=== PATIENT | female | born 1960 | race Caucasian/White ===

== ENCOUNTER 2018-10-23 22:45 | Emergency (ER) | payer MEDICARE, BC ==
--- NOTE | 2018-10-23 23:02 | EDM.PDOC ---
ED HPI GENERAL MEDICAL PROBLEM - General Chief Complaint: Lower Extremity Injury/Pain Stated Complaint: Proximal femur pain Time Seen by Provider: 10/23/18 22:57 Source of Information: Reports: Patient, Half-Way Records History Limitations: Reports: No Limitations - History of Present Illness INITIAL COMMENTS - FREE TEXT/NARRATIVE: Sustained femoral fracture involving rodding open reduction internal fixation 5- 6 weeks ago. She returned for therapy and strengthening and is currently residing in the nursing facility and under undergoing therapy. She is been nonweightbearing and was about to begin pivoting training. She denies any falls or bumping, has been undergoing therapy but again non- weightbearing fashion. Has been using Tylenol only for discomfort. Onset: Today Onset Date: 10/23/18 Onset Time: 20:00 Duration: Hour(s): (Femoral fracture with rodding 5-6 weeks ago Cedric), Getting Worse Location: Reports: Upper Extremity, Right Right Hip Pain Score (Numeric/FACES): 8 - Related Data Allergies Allergy/AdvReac Type Severity Reaction Status Date / Time adhesive tape Allergy Other Verified 10/23/18 23:22 Sulfa (Sulfonamide Allergy Other Verified 10/23/18 23:22 Antibiotics) Home Meds: Home Meds Calcitriol [Rocaltrol] 0.25 mcg PO DAILY 10/23/18 [History] Calcium Carbonate 1,200 mg PO BIDMEALS 10/23/18 [History] Esomeprazole Magnesium [Nexium 24Hr] 40 mg PO DAILY 10/23/18 [History] Insulin Aspart [NovoLOG] 0 unit SQ WITHMEALSANDBED 10/23/18 [History] Insulin Glarg,Human.Rec.Analog [Lantus Solostar] 30 unit SUBCUT 2100 10/23/18 [ History] Levothyroxine [Synthroid] 50 mcg PO 0700 10/23/18 [History] Loperamide HCl [Imodium A-D] 2 mg PO ASDIRECTED PRN 10/23/18 [History] Losartan [Cozaar] 25 mg PO DAILY 10/23/18 [History] Midodrine 5 mg PO TID 10/23/18 [History] Morphine [Morphine 10 MG/5 ML] 2 mg PO Q3HR PRN #1 cup 10/23/18 [Rx] Octreotide Acetate 100 mcg IM 0000,0800,1600 10/23/18 [History] L.acidoph,Paracasei, B.lactis [Probiotic] 1 each PO DAILY 10/24/18 [History] Propranolol [Inderal] 10 mg PO BID 10/24/18 [History] Rifaximin [Xifaxan] 550 mg PO BID 10/24/18 [History] Sertraline [Zoloft] 75 mg PO DAILY 10/24/18 [History] Spironolactone [Aldactone] 50 mg PO BID 10/24/18 [History] Ursodiol 300 mg PO TID 10/24/18 [History] Past Medical History HEENT History: Reports: Impaired Vision (Glasses) Cardiovascular History: Reports: Hypertension Respiratory History: Reports: None Gastrointestinal History: Reports: Hepatitis (Otitis C recently undergoing paracentesis), Irritable Bowel Syndrome, Other (See Below) (Esophageal varices without bleeding) Genitourinary History: Reports: Chronic Renal Insuffiency, Other (See Below) ( Suprapubic catheter) Musculoskeletal History: Reports: Back Pain, Chronic, Fracture, Osteoporosis, Other (See Below) (Chronic abnormalities of gait and mobility) Neurological History: Reports: Other (See Below) (Chronic inflammatory demyelinating polyneuritis) Psychiatric History: Reports: Depression Endocrine/Metabolic History: Reports: Diabetes, Type II, Hypothyroidism, IDDM, Osteoporosis (Pathological vertebral fractures) Immunologic History: Reports: None - Infectious Disease History Infectious Disease History: Reports: Hepatitis C (Underwent paracentesis 18 October 2018) - Past Surgical History HEENT Surgical History: Reports: None Cardiovascular Surgical History: Reports: None Respiratory Surgical History: Reports: None GI Surgical History: Reports: Colonoscopy Female Surgical History: Reports: Suprapubic Catheter Placement Neurological Surgical History: Reports: Lumbar Spine Musculoskeletal Surgical History: Reports: Other (See Below) (Femoral repair) ED ROS GENERAL - Review of Systems Review Of Systems: ROS reveals no pertinent complaints other than HPI. ED EXAM, GENERAL - Physical Exam Exam: See Below Exam Limited By: No Limitations General Appearance: Alert, WD/WN, Mild Distress Ears: Normal External Exam, Normal Canal, Hearing Grossly Normal Nose: Normal Inspection, Normal Mucosa, No Blood Throat/Mouth: Normal Inspection, Normal Lips, Normal Teeth, Normal Gums, Normal Oropharynx, Normal Voice, No Airway Compromise Head: Atraumatic, Normocephalic Neck: Normal Inspection, Supple, Non-Tender, Full Range of Motion Respiratory/Chest: No Respiratory Distress, Lungs Clear, Normal Breath Sounds, No Accessory Muscle Use, Chest Non-Tender Cardiovascular: Normal Peripheral Pulses, Regular Rate, Rhythm, No Edema, No Murmur GI/Abdominal: Normal Bowel Sounds, Non-Tender, Distended (Mild chronic in appearance enlarged right upper quadrant), Other (Suprapubic catheter in place) (Female) Exam: Deferred Rectal (Female) Exam: Deferred Extremities: No Pedal Edema, Normal Capillary Refill, Other (Bruises to the right upper extremity). No: Normal Inspection, Normal Range of Motion, Non- Tender, Spike's Sign Neurological: Alert, Oriented, CN II-XII Intact, Normal Cognition Skin Exam: Warm, Dry, Ecchymosis (Upper extremities), Wound/Incision (Right lateral femoral healing) Lymphatic: No Adenopathy Course - Vital Signs Last Recorded V/S: Last Vital Signs Temp 36.7 C 10/23/18 23:15 Pulse 72 10/23/18 23:15 Resp 20 10/23/18 23:15 BP 136/51 L 10/23/18 23:15 Pulse Ox 97 10/23/18 23:15 - Orders/Labs/Meds Orders: Active Orders 24 hr Category Date Time Status Hip Min 2V or 3V Rt [CR] Stat Exams 10/23/18 22:58 Ordered Morphine [Morphine 10 MG/5 ML] Med 10/24/18 00:01 Ordered 2 mg PO Q4H PRN Medication Orders Morphine Sulfate (Morphine 10 Mg/5 Ml) 2 mg PO Q4H PRN PRN Reason: pain Stop: 10/24/18 16:00 Meds: Medications Generic Name Dose Route Start Last Admin Trade Name Freq PRN Reason Stop Dose Admin Morphine Sulfate 2 mg 10/24/18 00:01 Morphine 10 Mg/5 Ml PO 10/24/18 16:00 Q4H PRN pain Discontinued Medications Generic Name Dose Route Start Last Admin Trade Name Freq PRN Reason Stop Dose Admin Heparin Sodium (Porcine) Confirm 10/23/18 23:32 Heparin Lock Flush 100 Units/Ml Administered 10/23/18 23:33 Dose 500 units .ROUTE .STK-MED ONE Morphine Sulfate 1 mg 10/23/18 23:25 Morphine IVPUSH 10/23/18 23:26 ONETIME ONE - Radiology Interpretation Free Text/Narrative:: Radiology report returns with findings of changes from recent open reduction internal fixation of the right intertrochanteric fracture. There is a mild impaction at the level of the fracture line Mild callus formation at the level of the fracture line Changes and degenerative joint disease. With his findings having no comparison available for me to review I recommend bedrest until official final reading him comparative values can be obtained per her provider at [facility] [place], [place]. Departure - Departure Time of Disposition: 00:30 Disposition: DC/Tfer to SNF 03 Condition: Fair Clinical Impression: Pain in right femur Strain of muscle of right hip Qualifiers: Encounter type: initial encounter Qualified Code(s): S76.011A - Strain of muscle, fascia and tendon of right hip, initial encounter - Discharge Information *PRESCRIPTION DRUG MONITORING PROGRAM REVIEWED*: Yes *COPY OF PRESCRIPTION DRUG MONITORING REPORT IN PATIENT TUAN: Yes Prescriptions: Morphine [Morphine 10 MG/5 ML] 2 mg PO Q3HR PRN #1 cup PRN Reason: Pain Forms: ED Department Discharge Additional Instructions: We'll return to the [facility] [place], [place] for continuing with therapy and advancing as tolerated. x-ray findings lead me to believe muscle ligamentous strain as well as radiology below. We'll return to the [facility] [place], [place] for continuing with therapy and advancing as tolerated. x-ray findings lead me to believe muscle ligamentous strain, as well as official reading below. Radiology report returns with findings of changes from recent open reduction internal fixation of the right intertrochanteric fracture. There is a mild impaction at the level of the fracture line Mild callus formation at the level of the fracture line Changes and degenerative joint disease. With his findings having no comparison available for me to review I recommend bedrest until official final reading him comparative values can be obtained per her provider at [facility] [place], [place]. Primary medication here for comfort and will discuss for ongoing pain management in addition to the Tylenol currently being used Primary medication here for comfort and will discuss for ongoing pain management in addition to the Tylenol currently being used. - Problem List & Annotations (1) Pain in right femur SNOMED Code(s): 691731568 Code(s): M89.8X5 - OTHER SPECIFIED DISORDERS OF BONE, THIGH Status: Acute Priority: Medium Annotation/Comment:: Questionable impaction of the fracture site. Final reading is pending (2) Strain of muscle of right hip SNOMED Code(s): 047765769 Code(s): S76.011A - STRAIN OF MUSCLE, FASCIA AND TENDON OF RIGHT HIP, INIT Status: Acute Priority: High Qualifiers: Encounter type: initial encounter Qualified Code(s): S76.011A - Strain of muscle, fascia and tendon of right hip, initial encounter - Problem List Review Problem List Initiated/Reviewed/Updated: Yes - My Orders Last 24 Hours: My Active Orders 10/23/18 22:58 Hip Min 2V or 3V Rt [CR] Stat 10/24/18 00:01 Morphine [Morphine 10 MG/5 ML] 2 mg PO Q4H PRN - Assessment/Plan Last 24 Hours: My Active Orders 10/23/18 22:58 Hip Min 2V or 3V Rt [CR] Stat 10/24/18 00:01 Morphine [Morphine 10 MG/5 ML] 2 mg PO Q4H PRN Plan: We'll return to the [facility] [place], [place] for continuing with therapy and advancing as tolerated. x-ray findings lead me to believe muscle ligamentous strain, as well as official reading below. Radiology report returns with findings of changes from recent open reduction internal fixation of the right intertrochanteric fracture. There is a mild impaction at the level of the fracture line Mild callus formation at the level of the fracture line Changes and degenerative joint disease. With his findings having no comparison available for me to review I recommend bedrest until official final reading him comparative values can be obtained per her provider at [facility] [place], [place]. Primary medication here for comfort and will discuss for ongoing pain management in addition to the Tylenol currently being used
[2018-10-23] MEDS ORDERED: Morphine 2 MG/ML Syringe IVPUSH ONE (23:25)
[2018-10-23] MEDS: Sodium Chloride 0.9% 50 ML SDV FLUSH PRN ×2 (23:44→23:47)
[2018-10-24] MEDS ORDERED: Morphine Solution 10 MG/5 ML UD Cup PO PRN (00:01)
--- NOTE | 2018-10-24 08:18 | CR ---
[id number] RAD/RAD Hip Right 2-3V EXAM: 2 VIEWS RIGHT HIP. INDICATION: PAIN POST SURGICAL PROXIMAL FEMUR RODDING. COMPARISON: None. DISCUSSION: No fracture, dislocation or other acute osseous abnormality. Postsurgical changes following internal fixation of proximal right femoral fracture. No evidence of hardware failure or loosening. Mild degenerative changes of the right hip. IMPRESSION: 1. As above. Lawrence Holt DO 10/24/18 0817 Thank you for allowing us to participate in the care of your patient.
== END 2018-10-24 01:30 ==
LOC: KA.ED 22:45
DX: S76.011A Strain of muscle, fascia and tendon of right hip, initial encounter (principal); S40.021A Contusion of right upper arm, initial encounter; M79.651 Pain in right thigh; I12.9 Hypertensive chronic kidney disease with stage 1 through stage 4 chronic kidney disease, or unspecified chronic kidney disease; N18.9 Chronic kidney disease, unspecified; E11.22 Type 2 diabetes mellitus with diabetic chronic kidney disease; E03.9 Hypothyroidism, unspecified; Z79.4 Long term (current) use of insulin; Z79.899 Other long term (current) drug therapy; Z88.2 Allergy status to sulfonamides; Z91.09 Other allergy status, other than to drugs and biological substances; X58.XXXA Exposure to other specified factors, initial encounter
CPT/HCPCS: 73502; 96374; 96375; 99284; A9270; J1642; J2270; 99283

== ENCOUNTER 2018-11-12 01:32 | Inpatient (IN) | payer MEDICARE, BC ==
[2018-11-12 02:34] LABS: ANION GAP 15.5 mmol/L (5-15); CHLORIDE,CL 112 mmol/L (98-115); SODIUM,NA 141 mmol/L (136-145)
[2018-11-12] MEDS ORDERED: Dextrose 5%-0.45% NaCl 1,000 ML IV SCH (03:15)
[2018-11-12] MEDS ORDERED: Water For Injection, Sterile 20 ML ONE (04:35)
[2018-11-12] MEDS: cefTRIAXone 1 GM Vial IVPUSH SCH (04:36)
--- NOTE | 2018-11-12 04:37 | EDM.PDOC ---
ED HPI GENERAL MEDICAL PROBLEM - General Chief Complaint: Diabetic Complaint Stated Complaint: hypoglycemia Time Seen by Provider: 11/12/18 01:50 Source of Information: Reports: EMS Notes Reviewed, Skilled Nursing Records History Limitations: Reports: Altered Mental Status - History of Present Illness INITIAL COMMENTS - FREE TEXT/NARRATIVE: 58-year-old female fpc resident at [facility] is brought by EMS for evaluation of hypoglycemic event and unresponsiveness. Her blood sugars were initially in the 20s she was given 1 amp of D50 by EMS. Upon arrival she was alert. Blood sugars were checked at 140. Patient was clammy and cool. Patient's past medical history is obtained from fpc records. She is status post right hip fracture trochanteric nailing approximately 2 months ago. She is a type II diabetic on insulin. She has history of cirrhosis of the liver with ascites and chronic kidney disease. She has a history of esophageal varices without bleeding hypertension, osteoporosis, hypothyroidism, and chronic inflammatory demyelinating polyneuritis. 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 (see below) (D50 1 amp) - Related Data Allergies Allergy/AdvReac Type Severity Reaction Status Date / Time adhesive tape Allergy Other Verified 10/23/18 23:22 Sulfa (Sulfonamide Allergy Other Verified 10/23/18 23:22 Antibiotics) Home Meds: Home Meds Calcitriol [Rocaltrol] 0.25 mcg PO DAILY 10/23/18 [History] Calcium Carbonate 1,200 mg PO BIDMEALS 10/23/18 [History] Esomeprazole Magnesium [Nexium 24Hr] 40 mg PO DAILY 10/23/18 [History] Insulin Aspart [NovoLOG] 0 unit SQ WITHMEALSANDBED 10/23/18 [History] Insulin Glarg,Human.Rec.Analog [Lantus Solostar] 30 unit SUBCUT 2100 10/23/18 [ History] Levothyroxine [Synthroid] 50 mcg PO 0700 10/23/18 [History] Loperamide HCl [Imodium A-D] 2 mg PO ASDIRECTED PRN 10/23/18 [History] Losartan [Cozaar] 25 mg PO DAILY 10/23/18 [History] Midodrine 5 mg PO TID 10/23/18 [History] Morphine [Morphine 10 MG/5 ML] 2 mg PO Q3HR PRN #1 cup 10/23/18 [Rx] Octreotide Acetate 100 mcg IM 0000,0800,1600 10/23/18 [History] L.acidoph,Paracasei, B.lactis [Probiotic] 1 each PO DAILY 10/24/18 [History] Propranolol [Inderal] 10 mg PO BID 10/24/18 [History] Rifaximin [Xifaxan] 550 mg PO BID 10/24/18 [History] Sertraline [Zoloft] 75 mg PO DAILY 10/24/18 [History] Spironolactone [Aldactone] 50 mg PO BID 10/24/18 [History] Ursodiol 300 mg PO TID 10/24/18 [History] Past Medical History HEENT History: Reports: Impaired Vision Cardiovascular History: Reports: Hypertension Respiratory History: Reports: None Gastrointestinal History: Reports: Hepatitis, Irritable Bowel Syndrome, Other ( See Below) Other Gastrointestinal History: Cirrhosis, Ascites, Chronic diarrhea, cyclical vomiting, chronic lower abdominal pain, esophageal varices Genitourinary History: Reports: Chronic Renal Insuffiency, Other (See Below) Other Genitourinary History: suprapubic catheter 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: Musculoskeletal History: Reports: Back Pain, Chronic, Fracture, Osteoporosis, Other (See Below) Other Musculoskeletal History: right femur fracture with tasia placement, generalized muscle weakness Neurological History: Reports: Other (See Below) Other Neuro History: chronic inflammatory demyelinating polyneuritis Psychiatric History: Reports: Depression Endocrine/Metabolic History: Reports: Diabetes, Type II, Hypothyroidism, IDDM, Osteoporosis Hematologic History: Reports: Idiopathic Thrombocytopenia Immunologic History: Reports: None - Infectious Disease History Infectious Disease History: Reports: Hepatitis C - Past Surgical History HEENT Surgical History: Reports: None Cardiovascular Surgical History: Reports: None Respiratory Surgical History: Reports: None GI Surgical History: Reports: Colonoscopy Female Surgical History: Reports: Suprapubic Catheter Placement Neurological Surgical History: Reports: Lumbar Spine Musculoskeletal Surgical History: Reports: Other (See Below) Other Musculoskeletal Surgeries/Procedures:: right femur with tasia placement ED ROS GENERAL - Review of Systems Review Of Systems: Unable To Obtain ED EXAM GENERAL NO PERIP PULSE - Physical Exam Exam: See Below Exam Limited By: Altered Mental Status General Appearance: No Apparent Distress, Lethargic Eye Exam: Bilateral Eye: EOMI, PERRL Ears: Normal External Exam Nose: Normal Inspection Throat/Mouth: No Airway Compromise Head: Atraumatic Neck: Normal Inspection, Supple Respiratory/Chest: No Respiratory Distress, Decreased Breath Sounds, Crackles Cardiovascular: Regular Rate, Rhythm GI/Abdominal: Distended, Hepatomegaly (Female) Exam: Other (Indwelling Palmer catheter) Back Exam: Normal Inspection Extremities: Normal Inspection, No Pedal Edema, Other (Healed incisions overlying the right hip) Neurological: Inattentive, Slow to Respond Psychiatric: Depressed Mood, Flat Affect Skin Exam: Cool. No: Diaphoretic, Jaundice EKG INTERPRETATION EKG Date: 11/12/18 Time: 02:19 Rhythm: NSR Rate (Beats/Min): 66 [place]: Normal P-Wave: Present QRS: Normal ST-T: Normal QT: Normal Comparison: NA - No Prior EKG EKG Interpretation Comments: Normal sinus rhythm with normal ECG Course - Vital Signs Last Recorded V/S: Last Vital Signs Temp 95.1 F L 11/12/18 01:44 Pulse 60 11/12/18 01:44 Resp 22 H 11/12/18 01:44 BP 106/55 L 11/12/18 01:44 Pulse Ox 89 L 11/12/18 01:44 - Orders/Labs/Meds Orders: Active Orders 24 hr Category Date Time Status Patient Status [ADT] Routine ADT 11/12/18 04:27 Ordered Height and Weight [RC] DAILY Care 11/12/18 04:26 Ordered Intake and Output [RC] QSHIFT Care 11/12/18 04:30 Ordered Oxygen Therapy [RC] CONTINUOUS Care 11/12/18 04:30 Ordered Pulse Oximetry [RC] PRN Care 11/12/18 04:30 Ordered Up With Assistance [RC] ASDIRECTED Care 11/12/18 04:26 Ordered Vital Signs [RC] Q4H Care 11/12/18 04:27 Ordered CXR [Chest 1V Frontal] [CR] Stat Exams 11/12/18 02:03 Taken Hip Min 1V Rt [CR] Stat Exams 11/12/18 02:13 Taken CULTURE URINE [RM] Stat Lab 11/12/18 03:50 Ordered Dextrose 5%-0.45% NaCl [Dextrose 5%-1/2 NS] 1,000 ml Med 11/12/18 03:15 Active IV ASDIRECTED cefTRIAXone [Rocephin] Med 11/12/18 04:00 Active 1 gm IVPUSH Q24H Medication Orders Ceftriaxone Sodium (Rocephin) 1 gm IVPUSH Q24H [facility] Dextrose/Sodium Chloride (Dextrose 5%-1/2 Ns) 1,000 mls @ 50 mls/hr IV ASDIRECTED FREDDY Last Admin: 11/12/18 03:10 Dose: 50 mls/hr Labs: Laboratory Tests 11/12/18 11/12/18 11/12/18 Range/Units 01:50 01:50 01:50 WBC 9.19 (5.00-10.00) 10^3/uL RBC 3.85 (3.80-5.50) 10^6/uL Hgb 12.3 (12.0-16.0) g/dL Hct 37.2 (37.0-47.0) % MCV 96.6 H (82.0-92.0) fL MCH 31.9 H (27.0-31.0) pg MCHC 33.1 (32.0-36.0) g/dL RDW 17.7 H (11.5-14.5) % Plt Count 158 (150-400) 10^3/uL MPV 12.9 H (7.4-10.4) fL Immature Gran % (Auto) 0.5 (0.0-5.0) % Neut % (Auto) 77.5 H (50.0-70.0) % Lymph % (Auto) 12.0 L (20.0-40.0) % [place] % (Auto) 5.4 (2.0-8.0) % Eos % (Auto) 3.9 H (1.0-3.0) % Baso % (Auto) 0.7 (0.0-1.0) % Immature Gran # (Auto) 0.05 (0.00-0.50) 10^3/uL Neut # (Auto) 7.12 H (2.50-7.00) 10^3/uL Lymph # (Auto) 1.10 (1.00-4.00) 10^3/uL [place] # (Auto) 0.50 (0.10-0.80) 10^3/uL Eos # (Auto) 0.36 H (0.10-0.30) 10^3/uL Baso # (Auto) 0.06 (0.00-0.10) 10^3/uL Sodium 141 (136-145) mmol/L Potassium 4.8 (3.3-5.3) mmol/L Chloride 112 (98-115) mmol/L Carbon Dioxide 18.3 L (21.0-32.0) mmol/L Anion Gap 15.5 H (5-15) mmol/L BUN 32 H (6-25) mg/dL Creatinine 1.15 (0.51-1.17) mg/dL Est Cr Clr Drug Dosing TNP Estimated GFR (MDRD) 48 mL/min Glucose 26 L* (75 - 99) mg/dL POC Glucose 142 H (74-106) mg/dl Calcium 9.1 (8.7-10.3) mg/dL Troponin I < 0.04 (0.00-0.070) ng/mL B-Natriuretic Peptide 127 H (0-100) pg/mL Specimen Type Urine Color (YELLOW) Urine Appearance (CLEAR) Urine pH (5.0-9.0) Ur Specific [place] (1.005-1.030) Urine Protein (NEGATIVE) mg/dL Urine Glucose (UA) (NEGATIVE) mg/dL Urine Ketones (NEGATIVE) mg/dL Urine Occult Blood (NEGATIVE) Urine Nitrite (NEGATIVE) Urine Bilirubin (NEGATIVE) Urine Urobilinogen (0.2-1.0) E.U./dL Ur Leukocyte Esterase (NEGATIVE) Urine RBC (0-5) /HPF Urine WBC (0-5) /HPF Amorphous Sediment (0/HPF) /HPF Urine Bacteria (NONE TO FEW) /HPF 11/12/18 11/12/18 11/12/18 Range/Units 02:26 03:00 03:15 WBC (5.00-10.00) 10^3/uL RBC (3.80-5.50) 10^6/uL Hgb (12.0-16.0) g/dL Hct (37.0-47.0) % MCV (82.0-92.0) fL MCH (27.0-31.0) pg MCHC (32.0-36.0) g/dL RDW (11.5-14.5) % Plt Count (150-400) 10^3/uL MPV (7.4-10.4) fL Immature Gran % (Auto) (0.0-5.0) % Neut % (Auto) (50.0-70.0) % Lymph % (Auto) (20.0-40.0) % [place] % (Auto) (2.0-8.0) % Eos % (Auto) (1.0-3.0) % Baso % (Auto) (0.0-1.0) % Immature Gran # (Auto) (0.00-0.50) 10^3/uL Neut # (Auto) (2.50-7.00) 10^3/uL Lymph # (Auto) (1.00-4.00) 10^3/uL [place] # (Auto) (0.10-0.80) 10^3/uL Eos # (Auto) (0.10-0.30) 10^3/uL Baso # (Auto) (0.00-0.10) 10^3/uL Sodium (136-145) mmol/L Potassium (3.3-5.3) mmol/L Chloride (98-115) mmol/L Carbon Dioxide (21.0-32.0) mmol/L Anion Gap (5-15) mmol/L BUN (6-25) mg/dL Creatinine (0.51-1.17) mg/dL Est Cr Clr Drug Dosing Estimated GFR (MDRD) mL/min Glucose (75 - 99) mg/dL POC Glucose 105 87 (74-106) mg/dl Calcium (8.7-10.3) mg/dL Troponin I (0.00-0.070) ng/mL B-Natriuretic Peptide (0-100) pg/mL Specimen Type [place] Urine Color Light yellow (YELLOW) Urine Appearance Turbid H (CLEAR) Urine pH 7.0 (5.0-9.0) Ur Specific [place] 1.020 (1.005-1.030) Urine Protein 30 H (NEGATIVE) mg/dL Urine Glucose (UA) Negative (NEGATIVE) mg/dL Urine Ketones Negative (NEGATIVE) mg/dL Urine Occult Blood Small H (NEGATIVE) Urine Nitrite Positive H (NEGATIVE) Urine Bilirubin Negative (NEGATIVE) Urine Urobilinogen 0.2 (0.2-1.0) E.U./dL Ur Leukocyte Esterase Moderate H (NEGATIVE) Urine RBC 5-10 H (0-5) /HPF Urine WBC 40-50 H (0-5) /HPF Amorphous Sediment Moderate H (0/HPF) /HPF Urine Bacteria Moderate H (NONE TO FEW) /HPF 11/12/18 Range/Units 03:34 WBC (5.00-10.00) 10^3/uL RBC (3.80-5.50) 10^6/uL Hgb (12.0-16.0) g/dL Hct (37.0-47.0) % MCV (82.0-92.0) fL MCH (27.0-31.0) pg MCHC (32.0-36.0) g/dL RDW (11.5-14.5) % Plt Count (150-400) 10^3/uL MPV (7.4-10.4) fL Immature Gran % (Auto) (0.0-5.0) % Neut % (Auto) (50.0-70.0) % Lymph % (Auto) (20.0-40.0) % [place] % (Auto) (2.0-8.0) % Eos % (Auto) (1.0-3.0) % Baso % (Auto) (0.0-1.0) % Immature Gran # (Auto) (0.00-0.50) 10^3/uL Neut # (Auto) (2.50-7.00) 10^3/uL Lymph # (Auto) (1.00-4.00) 10^3/uL [place] # (Auto) (0.10-0.80) 10^3/uL Eos # (Auto) (0.10-0.30) 10^3/uL Baso # (Auto) (0.00-0.10) 10^3/uL Sodium (136-145) mmol/L Potassium (3.3-5.3) mmol/L Chloride (98-115) mmol/L Carbon Dioxide (21.0-32.0) mmol/L Anion Gap (5-15) mmol/L BUN (6-25) mg/dL Creatinine (0.51-1.17) mg/dL Est Cr Clr Drug Dosing Estimated GFR (MDRD) mL/min Glucose (75 - 99) mg/dL POC Glucose 92 (74-106) mg/dl Calcium (8.7-10.3) mg/dL Troponin I (0.00-0.070) ng/mL B-Natriuretic Peptide (0-100) pg/mL Specimen Type Urine Color (YELLOW) Urine Appearance (CLEAR) Urine pH (5.0-9.0) Ur Specific [place] (1.005-1.030) Urine Protein (NEGATIVE) mg/dL Urine Glucose (UA) (NEGATIVE) mg/dL Urine Ketones (NEGATIVE) mg/dL Urine Occult Blood (NEGATIVE) Urine Nitrite (NEGATIVE) Urine Bilirubin (NEGATIVE) Urine Urobilinogen (0.2-1.0) E.U./dL Ur Leukocyte Esterase (NEGATIVE) Urine RBC (0-5) /HPF Urine WBC (0-5) /HPF Amorphous Sediment (0/HPF) /HPF Urine Bacteria (NONE TO FEW) /HPF Meds: Medications Generic Name Dose Route Start Last Admin Trade Name Freq PRN Reason Stop Dose Admin Ceftriaxone Sodium 1 gm 11/12/18 04:00 Rocephin IVPUSH Q24H [facility] Dextrose/Sodium Chloride 1,000 mls @ 50 mls/hr 11/12/18 03:15 11/12/18 03:10 Dextrose 5%-1/2 Ns IV 50 mls/hr ASDIRECTED [facility] Administration - Re-Assessments/Exams Free Text/Narrative Re-Assessment/Exam: 11/12/18 04:41 Patient's blood sugars checked upon arrival were 140 and most recent sugars were 98. She is slow responsive but is able to answer simple questions when asked. IV fluids D5 normal saline is running at O. Departure - Departure Time of Disposition: 04:42 Disposition: Admitted As Inpatient 65 Condition: Fair Clinical Impression: Atelectasis of right lung Urinary tract infection Qualifiers: Urinary tract infection type: catheter-associated UTI Indwelling urinary catheter type: indwelling urethral catheter Encounter type: initial encounter Qualified Code(s): T83.511A - Infection and inflammatory reaction due to indwelling urethral catheter, initial encounter; N39.0 - Urinary tract infection , site not specified Cirrhosis of liver Qualifiers: Hepatic cirrhosis type: unspecified hepatic cirrhosis Ascites presence: with ascites Qualified Code(s): K74.60 - Unspecified cirrhosis of liver; R18.8 - Other ascites Hepatitis C Qualifiers: Viral hepatitis chronicity: chronic Hepatic coma status: without hepatic coma Qualified Code(s): B18.2 - Chronic viral hepatitis C Type II diabetes mellitus with hypoglycemia Qualifiers: Diabetes mellitus terminal carman insulin use: with senior living use Diabetes mellitus complication detail: without coma Qualified Code(s): E11.649 - Type 2 diabetes mellitus with hypoglycemia without coma; Z79.4 - residential (current) use of insulin - Discharge Information - My Orders Last 24 Hours: My Active Orders 11/12/18 02:03 CXR [Chest 1V Frontal] [CR] Stat 11/12/18 02:13 Hip Min 1V Rt [CR] Stat 11/12/18 03:15 Dextrose 5%-0.45% NaCl [Dextrose 5%-1/2 NS] 1,000 ml IV ASDIRECTED 11/12/18 03:50 CULTURE URINE [RM] Stat 11/12/18 04:00 cefTRIAXone [Rocephin] 1 gm IVPUSH Q24H 11/12/18 04:26 Height and Weight [RC] DAILY Up With Assistance [RC] ASDIRECTED 11/12/18 04:27 Patient Status [ADT] Routine Vital Signs [RC] Q4H 11/12/18 04:30 Intake and Output [RC] QSHIFT Oxygen Therapy [RC] CONTINUOUS Pulse Oximetry [RC] PRN - Assessment/Plan Last 24 Hours: My Active Orders 11/12/18 02:03 CXR [Chest 1V Frontal] [CR] Stat 11/12/18 02:13 Hip Min 1V Rt [CR] Stat 11/12/18 03:15 Dextrose 5%-0.45% NaCl [Dextrose 5%-1/2 NS] 1,000 ml IV ASDIRECTED 11/12/18 03:50 CULTURE URINE [RM] Stat 11/12/18 04:00 cefTRIAXone [Rocephin] 1 gm IVPUSH Q24H 11/12/18 04:26 Height and Weight [RC] DAILY Up With Assistance [RC] ASDIRECTED 11/12/18 04:27 Patient Status [ADT] Routine Vital Signs [RC] Q4H 11/12/18 04:30 Intake and Output [RC] QSHIFT Oxygen Therapy [RC] CONTINUOUS Pulse Oximetry [RC] PRN Assessment:: 1. Hypoglycemic 2. Type II diabetic on insulin 3. Urinary tract infection 4. Cirrhosis of the liver with ascites 5. Atelectasis right lung 6. Chronic kidney disease 7. Hepatitis C 8. Status post right intertrochanteric hip fracture, trochanteric nailing Plan: 1. Patient started on D5 normal saline at TKO 2. Rocephin 1 g IV given for UTI infection. 3. Patient will be admitted to [facility] at [facility] for medical management
--- NOTE | 2018-11-12 08:56 | CR ---
[id number] RAD/RAD Hip Right 1V EXAM: RAD Hip Right 1V CLINICAL DATA: FOLLOW-UP RIGHT HIP FRACTURE COMPARISON: CORRELATION IS MADE WITH THE EXAM OF OCTOBER 23, 2018. FINDINGS: A single AP limited projection was obtained. There is no obvious change in appearance of the proximal right femur or surgical intervention since the last exam.. IMPRESSION: NO NEW FINDINGS. Nikhil Matias MD 11/12/18 0855 Thank you for allowing us to participate in the care of your patient.
--- NOTE | 2018-11-12 08:57 | CR ---
[id number] RAD/RAD Chest PA or AP 1V EXAM: SINGLE VIEW CHEST. INDICATION: CONGESTION COMPARISON: NO PREVIOUS SIMILAR EXAM IS AVAILABLE FINDINGS: There appears to be a small right pleural effusion. There is an infiltrate at the right lung base. The chest port is seen. The cardiomediastinal contour is mildly prominent. There is question of ascites. IMPRESSION: MILD PLEURAL-PARENCHYMAL CHANGES AT RIGHT LUNG BASE. CHEST PORT. CONSIDER FURTHER EXAMS. Nikhil Matias MD 11/12/18 0856 Thank you for allowing us to participate in the care of your patient.
[2018-11-12] MEDS ORDERED: Morphine Solution 10 MG/5 ML UD Cup PO PRN (09:47)
[2018-11-12] MEDS ORDERED: Non-Formulary Medication 1 Each (Loperamide Hcl [Imodium A-D] 2 MG) PO PRN (09:47)
[2018-11-12] MEDS ORDERED: ALPRAZolam 0.25 MG Tab PO PRN (09:47)
[2018-11-12] MEDS ORDERED: URSODIOL 300 MG PO SCH (14:00)
[2018-11-12] MEDS ORDERED: Insulin Isophane NPH, Human 100 Units/ML 10 ML Vial SUBCUT ONE (14:54)
[2018-11-12] MEDS ORDERED: Loperamide 2 MG Cap PO PRN (15:22)
[2018-11-12] MEDS: Octreotide 100 MCG/ML SDV SUBCUT SCH (15:26)
--- NOTE | 2018-11-12 15:36 | HP ---
CHIEF COMPLAINT: Diabetic with hypoglycemic reaction. HISTORY OF PRESENT ILLNESS: This is a 58-year-old female patient who is currently a resident at the long-term care facility in [facility]. She was brought to the emergency room due to a hypoglycemic event. She was transferred per ambulance. It was reported by ambulance staff that her blood sugar had been 29 mg%. She had been given 25 g of D50 en route. Her blood sugar at the time of arrival to the ED was 92 mg%. It did raise to 140 mg% with a followup of 143 mg%. She was alert/responding slowly at the time of the arrival to the ED. ER workup was obtained. The patient was diagnosed with a hypoglycemic event along with a UTI. She does have a suprapubic catheter. She received Rocephin in the ED. Her admission to the [facility] was due to status post right hip fracture, trochanteric nailing approximately two months ago. Her significant remaining history is cirrhosis of the liver/hepatitis-C, ascites, CKD. She also has a history of esophageal varices without bleeding, hypertension, hypothyroidism, osteoporosis, and chronic inflammatory demyelinating polyneuritis.(receives immunoglobulin q 28 days) The patient has had a history of this ascites and she has had paracentesis completed approximately every 3 weeks. Most recently, the paracentesis procedure has resulted in 700 mL, 2000ml and 3200 mL of output. Review of previous medical records indicated an elevated ammonia level. PAST MEDICAL HISTORY: 1. Hypothyroidism. 2. Ascites. 3. Acute tubular necrosis. 4. Attention and concentration deficit. 5. Chronic inflammatory demyelinating polyneuropathy. 6. Close comminuted intertrochanteric fracture of the proximal end of the femur with delay in healing on the right. 7. Dementia without behavioral disturbance. 8. Depression. 9. Hepatic encephalopathy. 10.End-stage liver disease. 11.Hepatic cirrhosis. 12.Hepatis C without hepatic coma. 13.Increased ammonia levels. 14.Insulin-dependent diabetes mellitus. 15.Osteoporosis with pathological fracture. 16.Peripheral autonomic neuropathy disorders. 17.Pleural effusion. 18.Recurrent UTIs. 19.Secondary esophageal varices. 20.Acute respiratory failure with hypoxia. 21.Thrombocytopenia. 22.Hypertension. 23.Irritable bowel syndrome with chronic diarrhea and cyclic vomiting, chronic lower abdominal pain. PAST SURGICAL HISTORY: 1. The patient does have a port in the upper right chest wall. 2. Status post right intertrochanteric femoral fracture with surgical repair and nailing. 3. Hysterectomy. 4. Paracentesis. 5. Colonoscopy. 6. Suprapubic catheter. MEDICATIONS: 1. Rocaltrol 0.25 mcg daily. 2. Calcium carbonate 1200 mg b.i.d. 3. Nexium 40 mg daily. 4. NovoLog subcu sliding scale insulin. 5. Lantus 26 units daily. 6. Levothyroxine 50 mcg daily. 7. Imodium AD as directed, which will be 2 tablets initially after first loose stool, then one capsule after each loose stool, but no more than 8 per day. 8. Cozaar 25 mg daily. 9. Midodrine 5 mg p.o. t.i.d. 10.Morphine 2 mg p.o. q.3 hours p.r.n. 11.Octreotide acetate 100 mcg subcu every 8 hours. 12.Probiotics daily. 13.Inderal 10 mg b.i.d. 14.Rifaximin 550 mg p.o. b.i.d. 15.Zoloft 75 daily. 16.Aldactone 50 mg b.i.d. 17.Ursodiol 300 mg t.i.d. 18.She also has Xanax 0.25 mg one time a day as needed. ALLERGIES: Include adhesive tape and sulfa. FAMILY HISTORY: Includes diabetes and cancer, mother, and cancer of her sister. SOCIAL HISTORY: Includes a past history of alcohol usage. REVIEW OF SYSTEMS: HEENT: The patient denies any headache, earache, nasal drainage, or sore throat. RESPIRATORY: She states that she has had no recent cough or congestion. CARDIOVASCULAR: No chest pain or palpitations. ABDOMEN: Appetite has been fair. She denies any nausea or vomiting. She does have a history of diarrhea, irritable bowel. : The patient has a suprapubic catheter. MUSCULOSKELETAL: She has no complaints of muscle or joint pain. NEUROLOGICAL: History of dementia. The patient does respond appropriately to questions asked but is slow in her responses. PSYCHIATRIC: The patient is on Zoloft for depression. PHYSICAL EXAMINATION: GENERAL: The patient responds to questions appropriately. HEENT: Head is normocephalic, conjunctivae clear, no nasal drainage. NECK: Supple without rigidity. RESPIRATORY: Lung sounds are clear to auscultation throughout. CARDIOVASCULAR: Heart rate and rhythm are regular. S1, S2. ABDOMEN: Soft, nontender, rounded. Bowel sounds are present. : Suprapubic cath present, drains dark yellow urine. skin tissue surrounding site slightly reddened. no active drainage. MUSCULOSKELETAL: Noted no lower extremity edema. Patient does have a tattoo on the right lower extremity. Feet are warm to touch. Pedal pulses are palpable. NEUROLOGICAL: She is alert. She does respond appropriately. Her responses are somewhat slow. PSYCHIATRIC: Affect is flat. SKIN: She is warm and dry to touch. There is no diaphoresis. DIAGNOSTIC: A chest x-ray was obtained noting hazy opacities along the right lung base. Findings can be seen with atelectasis, aspiration pneumonia, or developing infection. Right hip, noted stable alignment of internally fixated proximal right femur without evidence of hardware failure. EKG has been obtained noting a normal sinus rhythm. LABORATORY DATA: In the ER, CBC and panel was obtained along with the UA. culture pending. White count is 9.19, hemoglobin is 12.3. Troponin was obtained and was in therapeutic range. Glucose was 92, sequence from 26 to 92 to 143 mg%. IMPRESSION/PLAN: 1. Diabetes with hypoglycemic reaction. 2. Cirrhosis of the liver/hepatitis C. 3. Urinary tract infection/suprapubic catheter. The patient did receive D5 half-normal saline in the ER. UA was obtained, the culture is pending. In the inpatient setting, we are going to stop the IV fluids. We are going to add a hepatic panel and ammonia lab to her current orders. Her insulins will be placed on hold. In addition to her q.i.d. blood sugar, we will add a blood sugar this afternoon at 2 p.m. and also one at during the night. Further insulin management will be based on results. CBC and a panel will be ordered tomorrow. Remainder of her chronic diagnoses: 1. Chronic inflammatory demyelinating polyneuritis. 2. Hypothyroidism. 3. Hypertension. 4. Depression. It is noted that the patient is going to be transferred from [facility] to an alternative facility or home on the 22 of November. She will be resuming care at [facility] in [place]. There is no code status available at present. However, patient's has been contacted and he is planning to be at the hospital today and code status will be addressed at that time. Dr. Mcwilliams was notified of the admission and case discussed with the physician. /[id number]/MODL [id number]
[2018-11-12] MEDS ORDERED: Insulin Aspart 100 Units/ML 3 ML Pen SUBCUT ONE (15:37)
[2018-11-12] MEDS: Calcium Carbonate 500 MG Tab.Chew PO SCH (17:19)
[2018-11-12] MEDS ORDERED: RIFAXIMIN 550 MG PO SCH (21:00)
[2018-11-12] MEDS: Midodrine 5 MG Tab PO SCH (21:10)
[2018-11-12] MEDS: Propranolol 20 MG Tab PO SCH (21:10)
[2018-11-12] MEDS: Spironolactone 25 MG Tab PO SCH (21:10)
[2018-11-12] MEDS: Insulin Aspart 100 Units/ML 3 ML Pen SUBCUT SCH (21:57)
[2018-11-13] MEDS: Octreotide 100 MCG/ML SDV SUBCUT SCH ×2 (01:42→09:03)
[2018-11-13] MEDS: cefTRIAXone 1 GM Vial IVPUSH SCH (03:47)
[2018-11-13] MEDS: Omeprazole 20 MG Cap.CR PO SCH (06:27)
[2018-11-13] MEDS: Levothyroxine 50 MCG Tab PO SCH (06:27)
[2018-11-13] MEDS: Calcium Carbonate 500 MG Tab.Chew PO SCH ×2 (07:51→18:18)
[2018-11-13 07:55] LABS: ANION GAP 14.8 mmol/L (5-15)
[2018-11-13] MEDS: Insulin Aspart 100 Units/ML 3 ML Pen SUBCUT SCH ×4 (08:12→21:58)
[2018-11-13] MEDS: OCTREOTIDE 200 MCG/ML SUBCUT SCH ×2 (08:59→16:22)
[2018-11-13] MEDS ORDERED: Losartan 25 MG Tab PO SCH (09:00)
[2018-11-13] MEDS: RIFAXIMIN 550 MG PO SCH ×2 (09:01→21:57)
[2018-11-13] MEDS: Calcitriol 0.25 MCG Cap PO SCH (09:01)
[2018-11-13] MEDS: Midodrine 5 MG Tab PO SCH ×2 (09:02→21:56)
[2018-11-13] MEDS: B.Bifidum/B.Longum/L.Acidophilus/L.Rhamnosus (Probiotic) Cap PO SCH (09:02)
[2018-11-13] MEDS: Sertraline 50 MG Tab PO SCH (09:02)
[2018-11-13] MEDS: Spironolactone 25 MG Tab PO SCH ×2 (09:02→21:55)
[2018-11-13] MEDS: Propranolol 20 MG Tab PO SCH ×2 (09:04→21:55)
--- NOTE | 2018-11-13 09:18 | PCM.PN ---
- General Info Date of Service: 11/13/18 Functional Status: Reports: Pain Controlled, Tolerating Diet, Urinating (de la cruz catherter). Denies: Ambulating - Review of Systems General: Denies: Fever, Weakness, Fatigue, Malaise, Chills HEENT: Reports: No Symptoms Pulmonary: Reports: No Symptoms Cardiovascular: Reports: No Symptoms Gastrointestinal: Denies: Abdominal Pain, Constipation Genitourinary: Reports: No Symptoms Musculoskeletal: Reports: No Symptoms Skin: Reports: Bruising Neurological: Denies: Dizziness Psychiatric: Denies: Confusion, Agitation - Patient Data Vitals - Most Recent: Last Vital Signs Temp 98.2 F 11/13/18 06:52 Pulse 71 11/13/18 06:52 Resp 20 11/13/18 06:52 BP 107/54 L 11/13/18 06:52 Pulse Ox 98 11/13/18 06:52 Weight - Most Recent: 127 lb I&O - Last 24 Hours: Intake & Output 11/12/18 11/13/18 11/13/18 22:59 06:59 14:59 Intake Total 200 50 Output Total 100 100 Balance 100 -50 Lab Results Last 24 Hours: Laboratory Results - last 24 hr 11/12/18 11/12/18 11/12/18 Range/Units 10:10 10:10 10:47 WBC (5.00-10.00) 10^3/uL RBC (3.80-5.50) 10^6/uL Hgb (12.0-16.0) g/dL Hct (37.0-47.0) % MCV (82.0-92.0) fL MCH (27.0-31.0) pg MCHC (32.0-36.0) g/dL RDW (11.5-14.5) % Plt Count (150-400) 10^3/uL MPV (7.4-10.4) fL Immature Gran % (Auto) (0.0-5.0) % Neut % (Auto) (50.0-70.0) % Lymph % (Auto) (20.0-40.0) % [place] % (Auto) (2.0-8.0) % Eos % (Auto) (1.0-3.0) % Baso % (Auto) (0.0-1.0) % Immature Gran # (Auto) (0.00-0.50) 10^3/uL Neut # (Auto) (2.50-7.00) 10^3/uL Lymph # (Auto) (1.00-4.00) 10^3/uL [place] # (Auto) (0.10-0.80) 10^3/uL Eos # (Auto) (0.10-0.30) 10^3/uL Baso # (Auto) (0.00-0.10) 10^3/uL Sodium (136-145) mmol/L Potassium (3.3-5.3) mmol/L Chloride (98-115) mmol/L Carbon Dioxide (21.0-32.0) mmol/L Anion Gap (5-15) mmol/L BUN (6-25) mg/dL Creatinine (0.51-1.17) mg/dL Est Cr Clr Drug Dosing mL/min Estimated GFR (MDRD) mL/min Glucose (75 - 99) mg/dL POC Glucose 281 H (74-106) mg/dl Calcium (8.7-10.3) mg/dL Total Bilirubin 0.7 (0.2-1.0) mg/dL Direct Bilirubin 0.3 H (0.0-0.2) mg/dL Indirect Bilirubin 0.4 mg/dL AST 21 (15-37) U/L ALT 15 (12-78) U/L Alkaline Phosphatase 118 H (46-116) IU/L Ammonia 60 H (11-32) umol/L Total Protein 6.6 (6.4-8.2) g/dL Albumin 2.46 L (3.00-4.80) g/dL Globulin 4.14 Albumin/Globulin Ratio 0.59 11/12/18 11/12/18 11/12/18 Range/Units 14:52 17:18 21:09 WBC (5.00-10.00) 10^3/uL RBC (3.80-5.50) 10^6/uL Hgb (12.0-16.0) g/dL Hct (37.0-47.0) % MCV (82.0-92.0) fL MCH (27.0-31.0) pg MCHC (32.0-36.0) g/dL RDW (11.5-14.5) % Plt Count (150-400) 10^3/uL MPV (7.4-10.4) fL Immature Gran % (Auto) (0.0-5.0) % Neut % (Auto) (50.0-70.0) % Lymph % (Auto) (20.0-40.0) % [place] % (Auto) (2.0-8.0) % Eos % (Auto) (1.0-3.0) % Baso % (Auto) (0.0-1.0) % Immature Gran # (Auto) (0.00-0.50) 10^3/uL Neut # (Auto) (2.50-7.00) 10^3/uL Lymph # (Auto) (1.00-4.00) 10^3/uL [place] # (Auto) (0.10-0.80) 10^3/uL Eos # (Auto) (0.10-0.30) 10^3/uL Baso # (Auto) (0.00-0.10) 10^3/uL Sodium (136-145) mmol/L Potassium (3.3-5.3) mmol/L Chloride (98-115) mmol/L Carbon Dioxide (21.0-32.0) mmol/L Anion Gap (5-15) mmol/L BUN (6-25) mg/dL Creatinine (0.51-1.17) mg/dL Est Cr Clr Drug Dosing mL/min Estimated GFR (MDRD) mL/min Glucose (75 - 99) mg/dL POC Glucose 364 H 322 H 266 H (74-106) mg/dl Calcium (8.7-10.3) mg/dL Total Bilirubin (0.2-1.0) mg/dL Direct Bilirubin (0.0-0.2) mg/dL Indirect Bilirubin mg/dL AST (15-37) U/L ALT (12-78) U/L Alkaline Phosphatase (46-116) IU/L Ammonia (11-32) umol/L Total Protein (6.4-8.2) g/dL Albumin (3.00-4.80) g/dL Globulin Albumin/Globulin Ratio 11/13/18 11/13/18 11/13/18 Range/Units 02:15 07:25 07:25 WBC 5.24 (5.00-10.00) 10^3/uL RBC 3.04 L (3.80-5.50) 10^6/uL Hgb 9.7 L D (12.0-16.0) g/dL Hct 30.0 L (37.0-47.0) % MCV 98.7 H (82.0-92.0) fL MCH 31.9 H (27.0-31.0) pg MCHC 32.3 (32.0-36.0) g/dL RDW 18.0 H (11.5-14.5) % Plt Count 92 L (150-400) 10^3/uL MPV 12.8 H (7.4-10.4) fL Immature Gran % (Auto) 0.4 (0.0-5.0) % Neut % (Auto) 76.7 H (50.0-70.0) % Lymph % (Auto) 12.2 L (20.0-40.0) % [place] % (Auto) 6.3 (2.0-8.0) % Eos % (Auto) 4.0 H (1.0-3.0) % Baso % (Auto) 0.4 (0.0-1.0) % Immature Gran # (Auto) 0.02 (0.00-0.50) 10^3/uL Neut # (Auto) 4.02 (2.50-7.00) 10^3/uL Lymph # (Auto) 0.64 L (1.00-4.00) 10^3/uL [place] # (Auto) 0.33 (0.10-0.80) 10^3/uL Eos # (Auto) 0.21 (0.10-0.30) 10^3/uL Baso # (Auto) 0.02 (0.00-0.10) 10^3/uL Sodium 143 (136-145) mmol/L Potassium 5.1 (3.3-5.3) mmol/L Chloride 114 (98-115) mmol/L Carbon Dioxide 19.3 L (21.0-32.0) mmol/L Anion Gap 14.8 (5-15) mmol/L BUN 37 H (6-25) mg/dL Creatinine 1.30 H (0.51-1.17) mg/dL Est Cr Clr Drug Dosing 42.37 mL/min Estimated GFR (MDRD) 42 mL/min Glucose 144 H (75 - 99) mg/dL POC Glucose 189 H (74-106) mg/dl Calcium 8.8 (8.7-10.3) mg/dL Total Bilirubin 0.5 (0.2-1.0) mg/dL Direct Bilirubin (0.0-0.2) mg/dL Indirect Bilirubin mg/dL AST 24 (15-37) U/L ALT 16 (12-78) U/L Alkaline Phosphatase 123 H (46-116) IU/L Ammonia (11-32) umol/L Total Protein 6.8 (6.4-8.2) g/dL Albumin 2.48 L (3.00-4.80) g/dL Globulin Albumin/Globulin Ratio 11/13/ Range/Units 07:50 WBC (5.00-10.00) 10^3/uL RBC (3.80-5.50) 10^6/uL Hgb (12.0-16.0) g/dL Hct (37.0-47.0) % MCV (82.0-92.0) fL MCH (27.0-31.0) pg MCHC (32.0-36.0) g/dL RDW (11.5-14.5) % Plt Count (150-400) 10^3/uL MPV (7.4-10.4) fL Immature Gran % (Auto) (0.0-5.0) % Neut % (Auto) (50.0-70.0) % Lymph % (Auto) (20.0-40.0) % [place] % (Auto) (2.0-8.0) % Eos % (Auto) (1.0-3.0) % Baso % (Auto) (0.0-1.0) % Immature Gran # (Auto) (0.00-0.50) 10^3/uL Neut # (Auto) (2.50-7.00) 10^3/uL Lymph # (Auto) (1.00-4.00) 10^3/uL [place] # (Auto) (0.10-0.80) 10^3/uL Eos # (Auto) (0.10-0.30) 10^3/uL Baso # (Auto) (0.00-0.10) 10^3/uL Sodium (136-145) mmol/L Potassium (3.3-5.3) mmol/L Chloride (98-115) mmol/L Carbon Dioxide (21.0-32.0) mmol/L Anion Gap (5-15) mmol/L BUN (6-25) mg/dL Creatinine (0.51-1.17) mg/dL Est Cr Clr Drug Dosing mL/min Estimated GFR (MDRD) mL/min Glucose (75 - 99) mg/dL POC Glucose 156 H (74-106) mg/dl Calcium (8.7-10.3) mg/dL Total Bilirubin (0.2-1.0) mg/dL Direct Bilirubin (0.0-0.2) mg/dL Indirect Bilirubin mg/dL AST (15-37) U/L ALT (12-78) U/L Alkaline Phosphatase (46-116) IU/L Ammonia (11-32) umol/L Total Protein (6.4-8.2) g/dL Albumin (3.00-4.80) g/dL Globulin Albumin/Globulin Ratio Med Orders - Current: Current Medications Alprazolam (Xanax) 0.25 mg PO DAILY PRN PRN Reason: Anxiety Calcitriol (Rocaltrol) 0.25 mcg PO DAILY [facility] Last Admin: 11/13/18 09:01 Dose: 0.25 mcg Calcium Carbonate/Glycine (Tums) 1,000 mg PO BIDMEALS [facility] Last Admin: 11/13/18 07:51 Dose: 1,000 mg Ceftriaxone Sodium (Rocephin) 1 gm IVPUSH Q24H [facility] Last Admin: 11/13/18 03:47 Dose: 1 gm Insulin Aspart (Novolog) 0 unit SUBCUT WITHMEALSANDBED [facility]; Protocol Last Admin: 11/13/18 08:12 Dose: 1 units Lactobacillus Acidophilus/Rhamnosus (Multi-Anuja Plus) 1 cap PO DAILY [facility] Last Admin: 11/13/18 09:02 Dose: 1 cap Levothyroxine Sodium (Synthroid) 50 mcg PO 0700 [facility] Last Admin: 11/13/18 06:27 Dose: 50 mcg Loperamide HCl (Imodium) 2 mg PO Q1H PRN PRN Reason: Diarrhea Losartan Potassium (Cozaar) 25 mg PO DAILY [facility] Midodrine (Midodrine) 5 mg PO BID [facility] Last Admin: 11/13/18 09:02 Dose: 5 mg Morphine Sulfate (Morphine 10 Mg/5 Ml) 2 mg PO Q3H PRN PRN Reason: Pain Last Admin: 11/12/18 19:37 Dose: 4 mg Non-Formulary Medication (Ursodiol) 300 mg PO TID [facility] Omeprazole (Omeprazole) 20 mg PO DAILY@0700 [facility] Last Admin: 11/13/18 06:27 Dose: 20 mg Octreotide 200 Mcg/ (Ml Sdv - Ptom) 100 each SUBCUT 0000,0800,1600 [facility] Last Admin: 11/13/18 08:59 Dose: 100 each Rifaximin [Xifaxan] (550 Mg - Ptom) 1 each PO BID [facility] Last Admin: 11/13/18 09:01 Dose: 1 each Propranolol HCl (Inderal) 10 mg PO BID [facility] Last Admin: 11/12/18 21:10 Dose: Not Given Sertraline HCl (Zoloft) 75 mg PO DAILY [facility] Last Admin: 11/13/18 09:02 Dose: 75 mg Spironolactone (Aldactone) 25 mg PO BID [facility] Last Admin: 11/13/18 09:02 Dose: 25 mg Discontinued Medications Dextrose/Sodium Chloride (Dextrose 5%-1/2 Ns) 1,000 mls @ 50 mls/hr IV ASDIRECTED [facility] Last Admin: 11/12/18 03:10 Dose: 50 mls/hr Sterile Water (Sterile Water For Injection) Confirm Administered Dose 20 mls @ as directed .ROUTE .STK-MED ONE Stop: 11/12/18 04:36 Last Admin: 11/12/18 09:12 Dose: Not Given Insulin Aspart (Novolog) 5 unit SUBCUT ONETIME ONE Stop: 11/12/18 15:38 Last Admin: 11/12/18 16:10 Dose: 5 units Insulin Human NPH (Novolin N) 5 unit SUBCUT ONETIME ONE Stop: 11/12/18 14:55 Last Admin: 11/12/18 15:37 Dose: Not Given Non-Formulary Medication (Loperamide Hcl [Imodium A-D]) 2 mg PO ASDIRECTED PRN PRN Reason: Diarrhea Rifaximin [Xifaxan] (550 Mg Pt Own) 550 mg PO BID [facility] Last Admin: 11/12/18 21:11 Dose: 550 mg Octreotide Acetate (Sandostatin) 100 mcg SUBCUT 0000,0800,1600 [facility] Last Admin: 11/13/18 09:03 Dose: Not Given - Exam General: Alert, Oriented, Cooperative, No Acute Distress HEENT: No: Scleral Icterus Lungs: Clear to Auscultation, Normal Respiratory Effort Cardiovascular: Regular Rate, Regular Rhythm GI/Abdominal Exam: Distended, Splenomegaly. No: Rigid, Rebound, Tender, Abnormal Bowel Sounds Back Exam: No: CVA Tenderness (L), CVA Tenderness (R) Extremities: Pedal Edema Skin: Other (multiple bruising) Neurological: Normal Speech Psy/Mental Status: Labile Mood - Problem List Review Problem List Initiated/Reviewed/Updated: Yes - Plan Plan:: History summary 58-year-old female was admitted through the ED due to severe hypoglycemic episode. Patient was recently admitted to long-term care facility to right hip surgery she sustained a right hip fracture due to a fall. It was noted the patient to have blood sugar 29 requiring resuscitative IV dextrose. Patient does have chronic and current complicated comorbid past medical history including acute tubular necrosis, end-stage liver disease, cirrhosis with hx of hepatic encephalopathy hepatitis C, ascites (recent therapeutic paracentesis November 08, 700 mL output), hepatic encephalopathy with non-bleeding esophageal varices, chronic inflammatory demyelinating polyneuropathy with chronic indwelling De La Cruz catheterization due to neurogenic bladder, osteoporosis , thrombocytopenia, hypertension, IBS. [facility] The patient has a history of chronic inflammatory demyelinating polyneuritis in which she receiveds immunoglobulin injections q 28 days--due Nov 23. Hospital course to date Patient is clinically responding, Long acting insulin was held on admission, low -dose Insulin SS employed, blood sugars fasting trending down, 160 this am. Patient received Rocephin in the ED, will await urine cultures doubtful active infection. Primary hospital problems T2DM, uncontrolled, labile Bacteriuria, chronic, await cultures Thrombocytopenia Hypoalbuminemia Dehydration, mild Chronic problems S/P right intertrochanteric femoral fracture 2/2 fall, repair, Progressing in PT Cirrhosis/hepatitis C/hepatic encephalopathy, esophageal varices Hypothyroidism, supplementation Hypertension, hold ARB History respiratory failure, ADD ICS Dementia/Depression, Osteoporosis IBS Peripheral autonomic neuropathy, neurogenic bladder, chronic indwelling De La Cruz History pleural effusions Disposition/overall plan --Continue inpatient status --Encourage oral fluids --Hold losartan --Pulmonary Toilet --Pharmacy consultation to assess insulin regimen prior to admission --May consider simplifying regimen low-dose NPH Qd-BID upon discharge
[2018-11-14] MEDS: OCTREOTIDE 200 MCG/ML SUBCUT SCH ×2 (01:13→08:17)
[2018-11-14] MEDS: cefTRIAXone 1 GM Vial IVPUSH SCH (03:15)
[2018-11-14] MEDS: Levothyroxine 50 MCG Tab PO SCH (06:27)
[2018-11-14] MEDS: Omeprazole 20 MG Cap.CR PO SCH (06:27)
[2018-11-14] MEDS: Calcium Carbonate 500 MG Tab.Chew PO SCH (08:17)
[2018-11-14] MEDS: Insulin Aspart 100 Units/ML 3 ML Pen SUBCUT SCH ×2 (08:19→12:03)
[2018-11-14] MEDS: RIFAXIMIN 550 MG PO SCH (08:22)
[2018-11-14] MEDS: Propranolol 20 MG Tab PO SCH (08:22)
[2018-11-14] MEDS: Midodrine 5 MG Tab PO SCH (08:22)
[2018-11-14] MEDS: B.Bifidum/B.Longum/L.Acidophilus/L.Rhamnosus (Probiotic) Cap PO SCH (08:23)
[2018-11-14] MEDS: Sertraline 50 MG Tab PO SCH (08:23)
[2018-11-14] MEDS: Spironolactone 25 MG Tab PO SCH (08:23)
[2018-11-14] MEDS: Calcitriol 0.25 MCG Cap PO SCH (08:23)
--- NOTE | 2018-11-14 10:09 | PCM.DCSUM1 ---
Discharge Summary - Hospital Course Diagnosis: Stroke: No - Discharge Data Discharge Date: 11/14/18 Discharge Disposition: DC/Tfer to SNF 03 Condition: Fair - Patient Instructions Diet: Diabetic Diet Activity: Cough & Deep Breathe Driving: Do Not Drive Showering/Bathing: May Shower Notify Provider of: Fever, Nausea and/or Vomiting Other/Special Instructions: Resident was placed on NPH 70/30 Novolin in order to simplify her regimen. --Will start with 10 units subcutaneous in the a.m. -- Anticipate the need for slow upward titration (25-40 U/day). --Monitor blood sugars fasting and mealtimes for the next 3 days and FAX to [facility] for me to review for changes in her insulin. --Call provider if Fasting BG less than 90. Monitor for any signs of spontaneous peritonitis such as fever , abdominal pain, worsening altered mental status or any GI bleeding. Report any worsening shortness of breath or taut abdominal girth--likely will need therapeutic paracentesis - Discharge Plan *PRESCRIPTION DRUG MONITORING PROGRAM REVIEWED*: Not Applicable *COPY OF PRESCRIPTION DRUG MONITORING REPORT IN PATIENT TUAN: Not Applicable Prescriptions/Med Rec: Insulin NPH Hum/Reg Insulin Hm [Novolin 70-30 Flexpen] 10 unit SQ DAILY #1 [email or web address] Home Medications: Home Meds Calcitriol [Rocaltrol] 0.25 mcg PO DAILY 10/23/18 [History] Calcium Carbonate 1,200 mg PO BIDMEALS 10/23/18 [History] Esomeprazole Magnesium [Nexium 24Hr] 40 mg PO DAILY 10/23/18 [History] Levothyroxine [Synthroid] 50 mcg PO 0700 10/23/18 [History] Loperamide HCl [Imodium A-D] 2 mg PO ASDIRECTED PRN 10/23/18 [History] Midodrine 5 mg PO BID 10/23/18 [History] Morphine [Morphine 10 MG/5 ML] 2 mg PO Q3HR PRN #1 cup 10/23/18 [Rx] Octreotide Acetate 100 mcg IM 0000,0800,1600 10/23/18 [History] L.acidoph,Paracasei, B.lactis [Probiotic] 1 each PO DAILY 10/24/18 [History] Propranolol [Inderal] 10 mg PO BID 10/24/18 [History] Rifaximin [Xifaxan] 550 mg PO BID 10/24/18 [History] Sertraline [Zoloft] 75 mg PO DAILY 10/24/18 [History] Spironolactone [Aldactone] 50 mg PO BID 10/24/18 [History] Ursodiol 300 mg PO TID 10/24/18 [History] ALPRAZolam [Alprazolam] 0.25 mg PO ONETIME PRN 11/12/18 [History] Insulin NPH Hum/Reg Insulin Hm [Novolin 70-30 Flexpen] 10 unit SQ DAILY #1 insuln.pen 11/14/18 [Rx] - Discharge Summary/Plan Comment DC Time >30 min.: Yes Discharge Summary/Plan Comment: Final diagnosis Hypoglycemia, improved T2DM, uncontrolled, labile UTI/Bacteriuria, Thrombocytopenia Hypoalbuminemia Dehydration, mild, resolved Status post right intertrochanteric femoral fracture repair. History summary Clementina is a 58-year-old female was admitted through the ED due to severe hypoglycemic episode. Patient was recently admitted to long-term care facility to right hip surgery she sustained a right hip fracture due to a fall. It was noted the patient to have blood sugar 29 requiring resuscitative IV dextrose. Patient does have chronic and current complicated comorbid past medical history including acute tubular necrosis, end-stage liver disease, cirrhosis with hx of hepatic encephalopathy hepatitis C, ascites (recent therapeutic paracentesis November 08, 700 mL output), hepatic encephalopathy with non-bleeding esophageal varices, chronic inflammatory demyelinating polyneuropathy with chronic indwelling Palmer catheterization due to neurogenic bladder, osteoporosis , thrombocytopenia, hypertension, IBS. Patient has had recent long-acting insulin reduced at group home. The patient has a history of chronic inflammatory demyelinating polyneuritis in which she receiveds immunoglobulin injections q 28 days--due Nov 23. Hospital course Patient rapidly improved with the holding of her long acting insulin. Long acting insulin was held on admission, low-dose Insulin SS employed, blood sugars fasting trending down, her blood sugars were mapped and graft out and although her fastings were more acceptable without lows she did require prandial insulin. FBG ranges 140-160's however by PM evening was requiring 3-5 units meal coverage with a total of 13 units per 24 hours she remained between 180 and 385. She was treated for urinary tract infection on admission with Rocephin, this was continued, urine culture greater than 100,000. She will receive 2 days of Rocephin in the group home. She did not have any abdominal pain, no fever, normal white count, no active bleeding. She did have low blood pressure and I removed her ARB, no microalbumin in Epic chart was found Disposition --Patient will be transferred back to long-term care to complete physical therapy due to right intratrochanteric femur fracture repair. Nursing --Resident was placed on NPH 70/30 Novolin in order to simplify her regimen. --Start with 10 units subcutaneous in the a.m. --Anticipate the need for slow upward titration (25-40 U/day) divided BID ( FBG 140-180 acceptable) --Fasting goal 140-180 acceptable for her --Monitor blood sugars fasting and mealtimes for the next 3 days and FAX to [facility] for me to review for changes in her insulin. --Call provider if Fasting BG less than 90 --Rocephin 1 g every 24 IM 2 days --Monitor for any signs of spontaneous peritonitis such as fever, abdominal pain , worsening altered mental status or any GI bleeding. --Report any worsening shortness of breath or taut abdominal girth--likely will need therapeutic paracentesis - General Info Functional Status: Reports: Pain Controlled - Review of Systems General: Reports: Fatigue. Denies: Fever HEENT: Reports: No Symptoms Pulmonary: Reports: No Symptoms Cardiovascular: Denies: Dyspnea on Exertion Gastrointestinal: Denies: Abdominal Pain, Constipation, Decreased Appetite, Diarrhea, Nausea Genitourinary: Reports: No Symptoms Skin: Reports: Dryness Neurological: Reports: Pre-Existing Deficit Psychiatric: Denies: Confusion - Patient Data Vitals - Most Recent: Last Vital Signs Temp 99.2 F 11/14/18 06:28 Pulse 76 11/14/18 08:22 Resp 18 11/14/18 06:28 BP 124/63 11/14/18 08:22 Pulse Ox 99 11/14/18 06:28 Weight - Most Recent: 126 lb 14.4 oz I&O - Last 24 hours: Intake & Output 11/13/18 11/14/18 11/14/18 22:59 06:59 14:59 Intake Total 160 150 Output Total 300 250 Balance -140 -100 Lab Results - Last 24 hrs: Laboratory Results - last 24 hr 11/13/18 11/13/18 11/13/18 Range/Units 11:42 16:31 17:55 POC Glucose 285 H 294 H 383 H (74-106) mg/dl 11/14/18 Range/Units 08:00 POC Glucose 148 H (74-106) mg/dl JENNIFER Results - Last 24 hrs: Microbiology 11/12/18 03:50 Urine Culture - Final Urine, Palmer Cath (Indwelling) Med Orders - Current: Current Medications Alprazolam (Xanax) 0.25 mg PO DAILY PRN PRN Reason: Anxiety Last Admin: 11/13/18 19:23 Dose: 0.25 mg Calcitriol (Rocaltrol) 0.25 mcg PO DAILY [facility] Last Admin: 11/14/18 08:23 Dose: 0.25 mcg Calcium Carbonate/Glycine (Tums) 1,000 mg PO BIDMEALS [facility] Last Admin: 11/14/18 08:17 Dose: 1,000 mg Ceftriaxone Sodium (Rocephin) 1 gm IVPUSH Q24H [facility] Last Admin: 11/14/18 03:15 Dose: 1 gm Insulin Aspart (Novolog) 0 unit SUBCUT WITHMEALSANDBED [facility]; Protocol Last Admin: 11/14/18 08:19 Dose: Not Given Lactobacillus Acidophilus/Rhamnosus (Multi-Anuja Plus) 1 cap PO DAILY [facility] Last Admin: 11/14/18 08:23 Dose: 1 cap Levothyroxine Sodium (Synthroid) 50 mcg PO 0700 [facility] Last Admin: 11/14/18 06:27 Dose: 50 mcg Loperamide HCl (Imodium) 2 mg PO Q1H PRN PRN Reason: Diarrhea Losartan Potassium (Cozaar) 25 mg PO DAILY [facility] Last Admin: 11/13/18 09:05 Dose: 25 mg Midodrine (Midodrine) 5 mg PO BID [facility] Last Admin: 11/14/18 08:22 Dose: 5 mg Morphine Sulfate (Morphine 10 Mg/5 Ml) 2 mg PO Q3H PRN PRN Reason: Pain Last Admin: 11/12/18 19:37 Dose: 4 mg Non-Formulary Medication (Ursodiol) 300 mg PO TID [facility] Omeprazole (Omeprazole) 20 mg PO DAILY@0700 [facility] Last Admin: 11/14/18 06:27 Dose: 20 mg Octreotide 200 Mcg/ (Ml Sdv - Ptom) 100 each SUBCUT 0000,0800,1600 [facility] Last Admin: 11/14/18 08:17 Dose: 100 each Rifaximin [Xifaxan] (550 Mg - Ptom) 1 each PO BID [facility] Last Admin: 11/14/18 08:22 Dose: 1 each Propranolol HCl (Inderal) 10 mg PO BID [facility] Last Admin: 11/14/18 08:22 Dose: 10 mg Sertraline HCl (Zoloft) 75 mg PO DAILY [facility] Last Admin: 11/14/18 08:23 Dose: 75 mg Spironolactone (Aldactone) 25 mg PO BID [facility] Last Admin: 11/14/18 08:23 Dose: 25 mg Discontinued Medications Dextrose/Sodium Chloride (Dextrose 5%-1/2 Ns) 1,000 mls @ 50 mls/hr IV ASDIRECTED [facility] Last Admin: 11/12/18 03:10 Dose: 50 mls/hr Sterile Water (Sterile Water For Injection) Confirm Administered Dose 20 mls @ as directed .ROUTE .STK-MED ONE Stop: 11/12/18 04:36 Last Admin: 11/12/18 09:12 Dose: Not Given Insulin Aspart (Novolog) 5 unit SUBCUT ONETIME ONE Stop: 11/12/18 15:38 Last Admin: 11/12/18 16:10 Dose: 5 units Insulin Human NPH (Novolin N) 5 unit SUBCUT ONETIME ONE Stop: 11/12/18 14:55 Last Admin: 11/12/18 15:37 Dose: Not Given Non-Formulary Medication (Loperamide Hcl [Imodium A-D]) 2 mg PO ASDIRECTED PRN PRN Reason: Diarrhea Rifaximin [Xifaxan] (550 Mg Pt Own) 550 mg PO BID [facility] Last Admin: 11/12/18 21:11 Dose: 550 mg Octreotide Acetate (Sandostatin) 100 mcg SUBCUT 0000,0800,1600 [facility] Last Admin: 11/13/18 09:03 Dose: Not Given - Exam Quality Assessment: Denies: Supplemental Oxygen General: Reports: Alert, Oriented Neck: Reports: Supple Lungs: Reports: Clear to Auscultation, Normal Respiratory Effort Cardiovascular: Reports: Regular Rate, Regular Rhythm GI/Abdominal Exam: Normal Bowel Sounds, Distended, Hepatomegaly. No: Rigid Extremities: No Pedal Edema Psy/Mental Status: Reports: Alert, Normal Affect, Normal Mood
== END 2018-11-14 14:06 | DRG 638 ==
LOC: KA.ED 01:32 → KA.MS 04:27 → UNDOADMIN 05:00 → KA.MS 05:00 → UNDODISIN 11-14 14:06
PROVIDERS: ADMIT Physician Assistant; ATTEND Physician Assistant Medical
DX: E11.649 Type 2 diabetes mellitus with hypoglycemia without coma (principal); N39.0 Urinary tract infection, site not specified; G61.81 Chronic inflammatory demyelinating polyneuritis; D69.6 Thrombocytopenia, unspecified; E88.09 Other disorders of plasma-protein metabolism, not elsewhere classified; E86.0 Dehydration; M81.0 Age-related osteoporosis without current pathological fracture; N18.9 Chronic kidney disease, unspecified; R18.8 Other ascites; K58.0 Irritable bowel syndrome with diarrhea; E03.9 Hypothyroidism, unspecified; F03.90 Unspecified dementia, unspecified severity, without behavioral disturbance, psychotic disturbance, mood disturbance, and anxiety; K74.60 Unspecified cirrhosis of liver; H54.7 Unspecified visual loss; I12.9 Hypertensive chronic kidney disease with stage 1 through stage 4 chronic kidney disease, or unspecified chronic kidney disease; E11.22 Type 2 diabetes mellitus with diabetic chronic kidney disease; Z79.890 Hormone replacement therapy; G89.29 Other chronic pain; M54.9 Dorsalgia, unspecified; B18.2 Chronic viral hepatitis C; Z91.048 Other nonmedicinal substance allergy status; F32.9 Major depressive disorder, single episode, unspecified; Z90.710 Acquired absence of both cervix and uterus; Z79.4 Long term (current) use of insulin; Z98.890 Other specified postprocedural states; Z79.1 Long term (current) use of non-steroidal anti-inflammatories (NSAID); Z79.899 Other long term (current) drug therapy; Z88.2 Allergy status to sulfonamides
CPT/HCPCS: 36415; 71045; 73501; 80048; 81001; 82962 ×4; 83880; 84484; 85025; 87086; 87088; 96361; 96374; 99285; J0696; J7042; 80053; 80076; 82140; 87077; 87186; 99284; A9270-GY; J1815-GY; J2354-GY